=== PATIENT | male | born 1945 | race Caucasian/White ===

== ENCOUNTER 2016-11-10 19:23 | Inpatient (IN) | payer MEDICARE ==
[~2016-11-10] VITALS: Ht 167.6 cm; Wt 103.4 kg
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
--- NOTE | ~2016-11-10 | PR ---
[place], [place] PROGRESS NOTE NAME: MAHESH MCKINNON UNIT #: [id number] ROOM: 314 DOCTOR: SADIA NUR MD BIRTHDATE: [birth year] DOS: 11/21/2016 CHIEF COMPLAINT: "Hey, you think you can just come up and talk to this lady." SUMMARY OF THE VISIT: The patient was sitting in the breakfast area, eating breakfast with a female peer. He had been engaging in conversation with her politely as I entered he did seem to be upset that I had interrupted conversation; however, he very quickly deescalated as I began to joke with him, he pleasantly did then engage in conversation with me. There is an ____ of protectiveness and he does seem to misrepresent female patient's as his girlfriend, but again he did redirect with mild joking. He does seem to be less sexually preoccupied and most of his attention seems to be just in the form of attention. MENTAL STATUS: He is alert and oriented to person, possibly place, not time. Mood does still seem to be somewhat depressed, but redirects. There is some mild mood lability, but again he is redirectable. Memory is extremely poor. PLAN: Given the fact that he is on 30 mg of Celexa currently in order to prevent mood lability and decrease his libido. I will do a screening EKG to evaluate QT interval. I will maintain his current psychotropics, engage in individual and garcia milieu activity, returning to the least restrictive environment when stable. SADIA NUR MD CM:PNTRANS [id number] SADIA NUR MD 11/21/16 1356 interface
--- NOTE | ~2016-11-10 | PR ---
[place], [place] PROGRESS NOTE NAME: MAHESH MCKINNON UNIT #: [id number] ROOM: 314 DOCTOR: BARRERA CALDWELL RN BIRTHDATE: [birth year] DOS: 11/17/2016 TIME: 10:48 a.m. SUBJECTIVE: This is a 71-year-old male who was evaluated and seen today on the Behavioral Health Unit. Upon assessment, the patient is noted awake and alert, responsive. The patient has no nausea, vomiting, diarrhea, chest pain, shortness of breath or lightheadedness. The patient was noted sitting, visiting with another patient and offered no complaints. OBJECTIVE: VITAL SIGNS: Include temperature of 98.3, pulse 95, respirations 20, blood pressure 121/86, pulse oximetry 96. HEAD: Normocephalic, no lesions, no masses. EYES: No lesions, ulcerations. Sclera is noted nonicteric. No drainage is noted. ENT: No lesions, no scars, no masses. NECK: Without lesions. Trachea midline. No masses noted. RESPIRATORY: Lungs are noted to be clear. No wheezing, no rhonchi. Breath sounds are noted to be normal. The patient is without any respiratory distress. HEART: Regular rate and rhythm. S1 and S2 audible. No murmurs or gallops. ABDOMEN: Soft, bowel sounds present. Nontender. No rebounding or guarding. EXTREMITIES: No edema, erythema, or clubbing. NEUROLOGICAL: The patient is neurologically intact with no focal deficits. PSYCHOLOGICAL: The patient is noted to be a poor historian. SKIN: Warm, dry. No rashes, ulcerations, lesions, or nodules. ASSESSMENT: Problem list: 1. Brief psychotic disorder. 2. Major depressive disorder. 3. Dementia. 4. Carcinoid syndrome. 5. Chronic obstructive pulmonary disease. TREATMENT AND PLAN: The patient is noted to be medically stable at this time. Offered no complaints during the initial assessment. We will continue to monitor throughout hospital stay. [place], [place] PROGRESS NOTE NAME: MAHESH MCKINNON UNIT #: [id number] ROOM: 314 DOCTOR: BARRERA CALDWELL RN BIRTHDATE: [birth year] NAUN ANDERSEN CM:INES [id number] BARRERA PATEL 11/17/16 1451 interface
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
[~2016-11-10 19:23] MED LIST: OCTREOTIDE IJ; VITAMIN D50000 I3 PO
[2016-11-10] MEDS ORDERED: DEPAKOTE DR500 MG PO (20:31)
[2016-11-10] MEDS ORDERED: EXELON13.3 MG/21 TD (20:39)
[2016-11-10] MEDS ORDERED: EXELON4.6 MG/24 TD (20:40)
[2016-11-10] MEDS ORDERED: NATURE'S BLEND F1 MG PO (20:41)
[2016-11-10] MEDS ORDERED: MULTIPLE VITAMI1 TA3 PO (20:45)
[2016-11-10] MEDS ORDERED: QUETIAPINE FUM100 M1 PO ×2 (20:48→20:49)
[2016-11-10] MEDS ORDERED: QUETIAPINE FUMA25 M1 PO (20:50)
[2016-11-10] MEDS ORDERED: TRINTELLIX20 MG PO (20:51)
[2016-11-10] MEDS ORDERED: VISTARIL50 MG PO (20:52)
[2016-11-10] MEDS ORDERED: EXELON9.5 MG/24 TD (21:00)
[2016-11-10] MEDS ORDERED: OXYGEN NAS (22:35)
[2016-11-10 22:49] VITALS: BP 126/78
[2016-11-11 07:10] LABS: BASO % 0.4 % (0.0-1.0); EOS # 0.3 10*3/uL (0.0-0.4); EOS % 3.1 % (1.0-4.0); HEMATOCRIT 43.3 % (42.0-52.0); HEMOGLOBIN 14.4 g/dl (14.0-18.0); LYMPH # 1.8 10*3/uL (1.3-4.4); LYMPH % 22.4 % (27.0-41.0); MEAN CELL VOLUME 93.5 fl (80.0-94.0); MEAN CORPUSCULAR HGB 31.1 pg (27.0-31.0); MEAN CORPUSCULAR HGB CONC 33.3 g/dl (33.0-37.0); MEAN PLATELET VOLUME 10.2 fl (9.6-12.3); MONO # 0.9 10*3/uL (0.1-1.0); MONO % 11.3 % (3.0-9.0); NEUT # 5.1 10*3/uL (2.3-7.9); NEUT % 62.6 % (47.0-73.0); PLATELET COUNT AUTOMATED 336 10*3/uL (130-400); RED BLOOD COUNT 4.63 10*6/uL (4.50-5.90); RED CELL DISTRI WIDTH 13.2 % (0-14.5); WHITE BLOOD COUNT 8.2 10*3/uL (4.8-10.8)
[2016-11-11 07:41] LABS: ALBUMIN 3.6 gm/dl (3.1-4.5); ALKALINE PHOSPHATASE 118 U/L (45-117); BILIRUBIN, TOTAL 0.4 mg/dl (0.2-1.0); BUN 11 mg/dl (7-24); CARBON DIOXIDE 27 mmol/L (21-32); CHLORIDE 106 mmol/L (98-107); EST GLOM FILT AFRICAN AMERICAN > 60 ml/min; FREE T4 0.77 ng/dl (0.76-1.46); GLUCOSE 95 mg/dL (65-99); POTASSIUM 3.5 mmol/L (3.5-5.1); SGOT/AST 17 IU/L (3-35); SGPT/ALT 29 U/L (12-78); SODIUM 142 mmol/L (136-145)
[2016-11-11 07:46] LABS: VITAMIN D, 25-HYDROXY 33.6 ng/mL (30-100)
[2016-11-11 07:51] LABS: FOLIC ACID > 24.00 ng/mL (>5.38)
[2016-11-11 07:57] LABS: HEMOGLOBIN A1c 6.1 % (4.8-5.6)
[2016-11-11 08:00] VITALS: BP 123/72
[2016-11-11 11:36] LABS: BILIRUBIN NEGATIVE (NEGATIVE); BLOOD NEGATIVE (NEGATIVE); CLARITY CLEAR (CLEAR); COLOR YELLOW (YELLOW); GLUCOSE NEGATIVE (NEGATIVE); KETONE TRACE (NEGATIVE); LEUKO ESTERASE NEGATIVE (NEGATIVE); NITRITE NEGATIVE (NEGATIVE); PH 7.5 (5.0-9.0); PROTEIN TRACE (NEGATIVE)
[2016-11-11 12:03] LABS: URINE REFLEX COMMENT NO (NO); WBC 0-2 wbc/hpf (0-5)
[2016-11-11 20:19] VITALS: BP 124/68
[2016-11-12 07:56] VITALS: BP 127/85
[2016-11-12 20:00] VITALS: BP 101/73
[2016-11-13 08:12] VITALS: BP 103/67
[2016-11-13 20:12] VITALS: BP 114/67
[2016-11-14 08:02] VITALS: BP 131/83
[2016-11-14 20:00] VITALS: BP 134/74
[2016-11-15 08:55] VITALS: BP 119/72
[2016-11-15 12:06] LABS: BASO % 0.4 % (0.0-1.0); EOS # 0.2 10*3/uL (0.0-0.4); EOS % 2.1 % (1.0-4.0); HEMATOCRIT 40.7 % (42.0-52.0); HEMOGLOBIN 13.2 g/dl (14.0-18.0); LYMPH # 1.8 10*3/uL (1.3-4.4); LYMPH % 15.6 % (27.0-41.0); MEAN CELL VOLUME 94.2 fl (80.0-94.0); MEAN CORPUSCULAR HGB 30.6 pg (27.0-31.0); MEAN CORPUSCULAR HGB CONC 32.4 g/dl (33.0-37.0); MEAN PLATELET VOLUME 10.2 fl (9.6-12.3); MONO # 1.4 10*3/uL (0.1-1.0); MONO % 11.8 % (3.0-9.0); NEUT % 69.7 % (47.0-73.0); PLATELET COUNT AUTOMATED 317 10*3/uL (130-400); RED BLOOD COUNT 4.32 10*6/uL (4.50-5.90); RED CELL DISTRI WIDTH 13.2 % (0-14.5); WHITE BLOOD COUNT 11.4 10*3/uL (4.8-10.8)
[2016-11-15 12:33] LABS: ALBUMIN 3.5 gm/dl (3.1-4.5); ALKALINE PHOSPHATASE 104 U/L (45-117); BILIRUBIN, TOTAL 0.4 mg/dl (0.2-1.0); BUN 10 mg/dl (7-24); CARBON DIOXIDE 26 mmol/L (21-32); CHLORIDE 107 mmol/L (98-107); EST GLOM FILT AFRICAN AMERICAN > 60 ml/min; GLUCOSE 108 mg/dL (65-99); POTASSIUM 4.1 mmol/L (3.5-5.1); SGOT/AST 15 IU/L (3-35); SGPT/ALT 23 U/L (12-78); SODIUM 140 mmol/L (136-145)
[2016-11-15 20:00] VITALS: BP 117/71
[2016-11-16 06:07] LABS: BASO % 0.3 % (0.0-1.0); EOS # 0.3 10*3/uL (0.0-0.4); EOS % 2.7 % (1.0-4.0); HEMATOCRIT 38.3 % (42.0-52.0); LYMPH # 1.4 10*3/uL (1.3-4.4); LYMPH % 13.8 % (27.0-41.0); MEAN CELL VOLUME 92.3 fl (80.0-94.0); MEAN CORPUSCULAR HGB 31.3 pg (27.0-31.0); MEAN CORPUSCULAR HGB CONC 33.9 g/dl (33.0-37.0); MEAN PLATELET VOLUME 10.2 fl (9.6-12.3); MONO # 1.1 10*3/uL (0.1-1.0); MONO % 10.9 % (3.0-9.0); NEUT # 7.4 10*3/uL (2.3-7.9); NEUT % 71.9 % (47.0-73.0); PLATELET COUNT AUTOMATED 316 10*3/uL (130-400); RED BLOOD COUNT 4.15 10*6/uL (4.50-5.90); RED CELL DISTRI WIDTH 13.2 % (0-14.5); WHITE BLOOD COUNT 10.3 10*3/uL (4.8-10.8)
[2016-11-16 07:52] VITALS: BP 105/73
[2016-11-16 11:19] LABS: ABG BASE EXCESS 0.2 mmol/L (-2.0-2.0); ABG CO2 CONTENT 24.2 mmol/L (23-27); ABG HCO3 23.1 mmol/l (22-26); ABG TEMPERATURE 97.8 F (98.0-99.0); ARTERIAL BLOOD GAS PH 7.46 (7.35-7.45); ARTERIAL BLOOD GAS PO2 58.1 mmHg (80-90)
[2016-11-16 19:52] VITALS: BP 117/71
[2016-11-17 07:42] VITALS: BP 121/86
[2016-11-17 20:07] VITALS: BP 130/80
[2016-11-18 05:45] LABS: BILIRUBIN NEGATIVE (NEGATIVE); BLOOD NEGATIVE (NEGATIVE); CLARITY CLEAR (CLEAR); COLOR YELLOW (YELLOW); GLUCOSE NEGATIVE (NEGATIVE); KETONE NEGATIVE (NEGATIVE); LEUKO ESTERASE NEGATIVE (NEGATIVE); NITRITE NEGATIVE (NEGATIVE); PROTEIN NEGATIVE (NEGATIVE); SPECIFIC GRAVITY 1.015 (1.005-1.030); UROBILINOGEN 0.2 E.U./dl (0.2-1.0)
[2016-11-18 05:51] LABS: EPITHELIAL CELLS 0-5; WBC 0-2 wbc/hpf (0-5)
[2016-11-18 07:49] VITALS: BP 134/69
[2016-11-18 20:12] VITALS: BP 132/72
[2016-11-19 08:00] VITALS: BP 124/73
[2016-11-19 20:00] VITALS: BP 105/55
[2016-11-20 08:00] VITALS: BP 125/64
[2016-11-20 20:12] VITALS: BP 142/70
[2016-11-21 08:17] VITALS: BP 116/88
[2016-11-21 21:30] VITALS: BP 134/70
[2016-11-22 07:57] VITALS: BP 109/64
[2016-11-22 20:05] VITALS: BP 124/61
[2016-11-23 08:15] VITALS: BP 116/71
[2016-11-23] MEDS ORDERED: CITALOPRAM HYDR20 MG PO (08:51)
[2016-11-23] MEDS ORDERED: MEMANTINE HCL10 MG PO (08:51)
[2016-11-23] MEDS ORDERED: VITAMIN D50000 I3 PO (08:51)
[2016-11-23] MEDS ORDERED: RISPERIDONE2 M2 PO (08:51)
[2016-11-23] MEDS ORDERED: EXELON13.3 MG/21 T (08:51)
[2016-11-23] MEDS ORDERED: ATARAX,VISTARIL50 MG PO (08:51)
== END 2016-11-23 14:05 | disposition other institution (70) | DRG 57 ==
LOC: 3N 19:23
PROVIDERS: Internal Medicine; Psychiatry & Neurology Psychiatry; Registered Nurse
PROC: 5A09357 Assistance with Respiratory Ventilation, Less than 24 Consecutive Hours, Continuous Positive Airway Pressure (ICD-10-PCS; principal; 2016-11-11)
DX: G30.9 Alzheimer's disease, unspecified (principal); E34.0 Carcinoid syndrome; F02.81 Dementia in other diseases classified elsewhere, unspecified severity, with behavioral disturbance; F33.3 Major depressive disorder, recurrent, severe with psychotic symptoms; F23 Brief psychotic disorder; J44.9 Chronic obstructive pulmonary disease, unspecified; E03.9 Hypothyroidism, unspecified; G47.00 Insomnia, unspecified; F10.21 Alcohol dependence, in remission; G47.33 Obstructive sleep apnea (adult) (pediatric); E55.9 Vitamin D deficiency, unspecified; E53.8 Deficiency of other specified B group vitamins; Z88.0 Allergy status to penicillin; Z88.8 Allergy status to other drugs, medicaments and biological substances; Z84.89 Family history of other specified conditions; Z87.891 Personal history of nicotine dependence; Z80.9 Family history of malignant neoplasm, unspecified; Z79.899 Other long term (current) drug therapy